=== PATIENT | male | born 1930 | race Asian ===

== ENCOUNTER → 2016-05-29 | Outpatient (CLI) | payer OTHER ==
[~2016-05-29] MED LIST: ALBU8.5H IH; ALBU8HFA IH; ASPI81TA2 PO; ATOR40TA28 PO; CALC-719 PO; DSS100 PO; FINA5TAB41 PO; METO25 PO; NITR0.4T SL; OMEG1CAP31 PO; SERT50TA12 PO; TAMS0.4C32 PO; TOLT4LA PO
== END | disposition home or self-care (01) ==
LOC: RADPV 14:22
PROVIDERS: ATTEND Internal Medicine
DX: J44.9 Chronic obstructive pulmonary disease, unspecified (principal); J98.4 Other disorders of lung; I70.0 Atherosclerosis of aorta
CPT/HCPCS: 71020